=== PATIENT | female | born 2000 | race Two or more races ===

== ENCOUNTER → 2024-02-17 | Emergency (ER) | payer OTHER ==
[~2024-02-17] VITALS: Ht 162.6 cm; Wt 49.9 kg
== END | disposition home or self-care (01) ==
LOC: ER 21:20
DX: J02.9 Acute pharyngitis, unspecified (principal)

== ENCOUNTER 2024-02-22 08:39 | Emergency (ER) | payer OTHER ==
[~2024-02-22] VITALS: Ht 157.5 cm; Wt 49.9 kg
[2024-02-22] MEDS ORDERED: LEVALBUTEROL HCL 1.25 MG/3 ML SOLUTION IH STA (10:03)
[2024-02-22] MEDS ORDERED: HYDROCODONE/CHLORPHEN P-STIREX 5 ML ML PO STA (10:03)
[2024-02-22] MEDS ORDERED: BUDESONIDE 0.5 MG/2 ML AMPUL.NEB IH STA (10:04)
[2024-02-22] MEDS ORDERED: METHYLPREDNISOLONE SOD SUCC 125 MG VIAL IV STA (10:05)
[2024-02-22 10:29] LABS: HEMATOCRIT 34.2 % (36.0-45.00); HEMOGLOBIN 11.3 g/dL (12.0-15.00); MEAN CELL VOLUME 73.9 fL (80.00-100.00); MEAN CORPUSCULAR HEMOGLOBIN 24.4 pg (27.00-32.0); PLATELET COUNT 347 K/uL (150-450); RED BLOOD COUNT 4.63 M/uL (4.00-6.00); RED CELL DISTRIBUTION WIDTH 18.9 % (11.5-14.5)
== END 2024-02-22 13:45 | disposition home or self-care (01) ==
LOC: ER 08:40
PROVIDERS: General Practice
DX: J45.909 Unspecified asthma, uncomplicated (principal); Z20.822 Contact with and (suspected) exposure to COVID-19

== ENCOUNTER → 2024-05-28 | Emergency (ER) | payer OTHER ==
[~2024-05-28] VITALS: Ht 157.5 cm; Wt 57.2 kg
[2024-05-28 11:48] LABS: HEMATOCRIT 34.5 % (36.0-45.00); HEMOGLOBIN 11.6 g/dL (12.0-15.00); MEAN CELL VOLUME 78.4 fL (80.00-100.00); MEAN CORPUSCULAR HEMOGLOBIN 26.3 pg (27.00-32.0); MEAN CORPUSCULAR HGB CONC 33.5 g/dl (32.0-36.0); PLATELET COUNT 291 K/uL (150-450); RED CELL DISTRIBUTION WIDTH 18.7 % (11.5-14.5)
[2024-05-28 12:24] LABS: CREATININE SERUM 0.52 mg/dL (0.55-1.02); GFR 146.13; POTASSIUM 3.69 mEq/L (3.5-5.1)
[2024-05-28 13:41] LABS: URINE APPEARANCE Clear; URINE BILIRRUBIN Negative (NEGATIVE); URINE BLOOD Negative; URINE COLOR Yellow; URINE GLUCOSE Negative (NEGATIVE); URINE KETONE Negative (NEGATIVE); URINE LEUKOCYTE Negative; URINE NITRATE Negative; URINE PROTEIN Negative (NEGATIVE); URINE UROBILINOGEN 0.2 E.U./dl
[2024-05-28 13:44] LABS: URINE BACTERIA 47.7 uL (0.0-1933); URINE EPITHELIAL CELLS 4.3 uL (0.0-38.8)
[2024-05-28 13:52] LABS: URINE WBC 0.6 uL (0.0-23.2)
== END | disposition home or self-care (01) ==
LOC: ER 10:31
PROVIDERS: General Practice
DX: O26.892 Other specified pregnancy related conditions, second trimester (principal); Z3A.19 19 weeks gestation of pregnancy; R10.9 Unspecified abdominal pain

== ENCOUNTER 2024-07-14 08:00 | Emergency (ER) | payer OTHER ==
[~2024-07-14] VITALS: Ht 157.5 cm; Wt 59.0 kg
[2024-07-14] MEDS ORDERED: FAMOTIDINE/PF 20 MG in 0.9 % SODIUM CHLORIDE 8 ML IV PUSH STA (08:18)
[2024-07-14] MEDS ORDERED: ONDANSETRON HCL 2 MG/ML VIAL IV ONE (08:30)
[2024-07-14] MEDS ORDERED: DIPHENOXYLATE HCL/ATROPINE 1 UDTAB TABLET PO ONE (08:30)
[2024-07-14] MEDS ORDERED: 0.9 % SODIUM CHLORIDE 1,000 ML IV SCH (08:30)
[2024-07-14] MEDS ORDERED: ONDANSETRON HCL 2 MG/ML VIAL ONE (08:34)
[2024-07-14] MEDS ORDERED: FAMOTIDINE/PF 20 MG/2 ML VIAL ONE (08:34)
[2024-07-14 09:17] LABS: HEMATOCRIT 32.8 % (36.0-45.00); HEMOGLOBIN 10.7 g/dL (12.0-15.00); MEAN CELL VOLUME 78.6 fL (80.00-100.00); MEAN CORPUSCULAR HEMOGLOBIN 25.7 pg (27.00-32.0); MEAN CORPUSCULAR HGB CONC 32.7 g/dl (32.0-36.0); PLATELET COUNT 291 K/uL (150-450); RED BLOOD COUNT 4.18 M/uL (4.00-6.00); RED CELL DISTRIBUTION WIDTH 17.4 % (11.5-14.5)
[2024-07-14 09:58] LABS: ALBUMIN 3.2 gm/dL (3.4-5.0); BILIRUBIN TOTAL 0.65 mg/dL (0.3-1.2); CALCIUM 8.7 mg/dL (8.5-10.1); CREATININE SERUM 0.56 mg/dL (0.55-1.02); GFR 134.15; POTASSIUM 3.86 mEq/L (3.5-5.1); TOTAL PROTEIN 7.2 gm/dL (6.4-8.2)
[2024-07-14] MEDS ORDERED: ONDANSETRON ODT8 MG PO (10:25)
[2024-07-14] MEDS ORDERED: PEPCID AC20 MG PO (10:25)
== END 2024-07-14 11:07 | disposition home or self-care (01) ==
LOC: ER 08:03
PROVIDERS: General Practice
DX: O99.612 Diseases of the digestive system complicating pregnancy, second trimester (principal); K92.89 Other specified diseases of the digestive system; K52.9 Noninfective gastroenteritis and colitis, unspecified; Z3A.25 25 weeks gestation of pregnancy

== ENCOUNTER 2024-10-12 02:02 | Inpatient (IN) | payer OTHER ==
[~2024-10-12] VITALS: Ht 157.5 cm; Wt 73.0 kg
[2024-10-12 01:35] VITALS: BP 112/75
[~2024-10-12 02:02] MED LIST: ONDANSETRON ODT8 MG PO; PEPCID AC20 MG PO
[2024-10-12] MEDS ORDERED: AMPICILLIN SODIUM 2,000 MG VIAL IV ONE (02:15)
[2024-10-12] MEDS ORDERED: RINGERS SOLUTION,LACTATED 1,000 ML IV SCH (02:15)
[2024-10-12 02:36] LABS: URINE APPEARANCE Clear; URINE BILIRRUBIN Negative (NEGATIVE); URINE BLOOD Trace; URINE COLOR Yellow; URINE GLUCOSE Negative (NEGATIVE); URINE KETONE Negative (NEGATIVE); URINE LEUKOCYTE Negative; URINE NITRATE Negative; URINE PROTEIN Negative (NEGATIVE); URINE UROBILINOGEN 0.2 E.U./dl
[2024-10-12 02:39] LABS: URINE BACTERIA 335.2 uL (0.0-1933); URINE EPITHELIAL CELLS 24.9 uL (0.0-38.8)
[2024-10-12 02:46] LABS: URINE RBC 1.4 uL (0.0-20.8)
[2024-10-12 02:48] LABS: BASO % 0.2 % (0.1-1.2); EOS # 0.16 (0.04-0.54); EOS % 1.3 % (0.7-7.0); HEMATOCRIT 28.9 % (34.1-44.9); LYMPH # 5.13 (1.18-3.74); LYMPH % 40.4 % (19.3-53.1); MEAN CORPUSCULAR HEMOGLOBIN 22.7 pg (25.6-32.2); MONO # 0.91 (0.24-0.82); MONO % 7.2 % (4.7-12.5); NEUT # 6.39 (1.56-6.13); NEUT % 50.3 % (34.0-71.1); PLATELET COUNT 321 K/uL (163-369); RED BLOOD COUNT 3.88 M/uL (3.93-5.22); RED CELL DISTRIBUTION WIDTH 17.9 % (11.6-14.4)
[2024-10-12 03:28] LABS: HEMOGLOBIN 8.8 g/dL (11.2-15.7)
[2024-10-12 03:41] VITALS: BP 121/77
[2024-10-12] MEDS ORDERED: AMPICILLIN SODIUM 1,000 MG VIAL IV SCH (05:00)
[2024-10-12 07:16] VITALS: BP 120/75
[2024-10-12] MEDS ORDERED: OXYTOCIN 20 UNITS/500ML RL PIGGYBAG IV SCH (11:00)
[2024-10-12 12:11] VITALS: BP 121/78
[2024-10-12] MEDS ORDERED: METHYLERGONOVINE MALEATE 0.2 MG/ML AMPUL IM STA (18:25)
[2024-10-12] MEDS ORDERED: CARBOPROST TROMETHAMINE 250 MCG/ML AMPUL IM STA (18:27)
[2024-10-12] MEDS ORDERED: OXYTOCIN 1,000 ML IV SCH (18:45)
[2024-10-12] MEDS ORDERED: ACETAMINOPHEN 500 MG GEL..CAP PO PRN (18:45)
[2024-10-12 18:59] LABS: BASO % 0.2 % (0.1-1.2); EOS # 0.02 (0.04-0.54); EOS % 0.1 % (0.7-7.0); HEMOGLOBIN 9.2 g/dL (11.2-15.7); LYMPH # 2.68 (1.18-3.74); LYMPH % 11.7 % (19.3-53.1); MEAN CORPUSCULAR HEMOGLOBIN 22.4 pg (25.6-32.2); MONO # 1.19 (0.24-0.82); MONO % 5.2 % (4.7-12.5); NEUT # 18.94 (1.56-6.13); NEUT % 82.3 % (34.0-71.1); PLATELET COUNT 350 K/uL (163-369); RED CELL DISTRIBUTION WIDTH 17.8 % (11.6-14.4)
[2024-10-12 19:04] VITALS: BP 124/82
[2024-10-12 23:17] VITALS: BP 115/72
[2024-10-12 23:42] LABS: BASO % 0.1 % (0.1-1.2); EOS # 0.01 (0.04-0.54); LYMPH # 4.45 (1.18-3.74); LYMPH % 21.4 % (19.3-53.1); MEAN CORPUSCULAR HEMOGLOBIN 22.5 pg (25.6-32.2); MONO # 1.44 (0.24-0.82); MONO % 6.9 % (4.7-12.5); NEUT # 14.75 (1.56-6.13); NEUT % 71.1 % (34.0-71.1); PLATELET COUNT 351 K/uL (163-369); RED BLOOD COUNT 3.56 M/uL (3.93-5.22); RED CELL DISTRIBUTION WIDTH 17.6 % (11.6-14.4)
[2024-10-13 00:41] LABS: HEMATOCRIT 25.5 % (34.1-44.9)
[2024-10-13 02:55] VITALS: BP 97/60
[2024-10-13 06:08] VITALS: BP 100/64; O2SAT 99
[2024-10-13 07:15] VITALS: BP 103/62
[2024-10-13] MEDS ORDERED: PNV,CALCIUM 72/IRON/FOLIC ACID 1 TAB TABLET PO SCH (09:00)
[2024-10-13 10:35] VITALS: BP 107/59
[2024-10-13 11:50] VITALS: BP 116/66
[2024-10-13 13:23] LABS: BASO % 0.2 % (0.1-1.2); EOS # 0.02 (0.04-0.54); EOS % 0.1 % (0.7-7.0); HEMATOCRIT 29.2 % (34.1-44.9); HEMOGLOBIN 9.5 g/dL (11.2-15.7); LYMPH # 4.45 (1.18-3.74); LYMPH % 26.5 % (19.3-53.1); MEAN CORPUSCULAR HEMOGLOBIN 24.8 pg (25.6-32.2); MONO # 1.11 (0.24-0.82); MONO % 6.6 % (4.7-12.5); NEUT # 11.12 (1.56-6.13); NEUT % 66.2 % (34.0-71.1); PLATELET COUNT 291 K/uL (163-369); RED BLOOD COUNT 3.83 M/uL (3.93-5.22); RED CELL DISTRIBUTION WIDTH 17.4 % (11.6-14.4)
[2024-10-14 00:50] VITALS: BP 107/69
[2024-10-14 08:00] VITALS: BP 116/76
== END 2024-10-14 12:15 | disposition home or self-care (01) | DRG 807 ==
LOC: LDR 02:02 → OB/GYN 10-13 10:51
PROVIDERS: ADMIT Obstetrics & Gynecology; ATTEND Obstetrics & Gynecology
PROC: 10E0XZZ Delivery of Products of Conception, External Approach (ICD-10-PCS; principal; 2024-10-12)
PROC: 0W8NXZZ Division of Female Perineum, External Approach (ICD-10-PCS; 2024-10-12)
PROC: 4A1HXCZ Monitoring of Products of Conception, Cardiac Rate, External Approach (ICD-10-PCS; 2024-10-12)
DX: O80 Encounter for full-term uncomplicated delivery (principal); Z37.0 Single live birth; Z3A.38 38 weeks gestation of pregnancy